=== PATIENT | female | born 1990 | race African-American/Black ===

== ENCOUNTER 2016-11-10 15:48 | Emergency (ER) | payer MEDICAID ==
[~2016-11-10] VITALS: Ht 180.3 cm; Wt 90.5 kg
[~2016-11-10 15:48] MED LIST: PHEN12.5 PO; PREN0.01 PO
[2016-11-10 15:49] VITALS: BP 143/74; PULSE 84; RESP 15; TEMP 98.4; O2SAT 98
[2016-11-10] MEDS ORDERED: TETANUS/DIPHTHERIA TOXOID ADULT 0.5 ML VIAL IM ONE (16:45)
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
== END 2016-11-10 17:21 | disposition home or self-care (01) ==
LOC: NEPK 15:48
DX: S40.812A Abrasion of left upper arm, initial encounter (principal); M54.2 Cervicalgia; Y04.8XXA Assault by other bodily force, initial encounter; Z23 Encounter for immunization
CPT/HCPCS: 70360; 84703; 90471; 90714

== ENCOUNTER 2017-02-27 15:22 | Emergency (ER) | payer MEDICAID ==
[~2017-02-27] VITALS: Ht 180.3 cm; Wt 89.0 kg
[2017-02-27 15:23] VITALS: BP 120/76; PULSE 112; RESP 18; TEMP 98.8; O2SAT 100
--- NOTE | 2017-02-27 15:44 | RADRPT ---
EXAM DATE/TIME: 02/27/2017 15:39 [facility] COMPARISON: No previous studies available for comparison. INDICATIONS : Left ankle pain; rolled ankle this morning. MEDICAL HISTORY : None. SURGICAL HISTORY : None. ENCOUNTER: Initial ACUITY: 1 day PAIN SCORE: 3/10 LOCATION: Left ankle FINDINGS: Three view exam was performed of the left ankle. The bony structures are in normal alignment. No ev idence of fracture, dislocation, or soft tissue swelling. The ankle mortise is intact. No radiopaqu e foreign bodies are seen. Bony mineralization is normal. CONCLUSION: Unremarkable examination of the left ankle. Souleymane Gallego MD on February 27, 2017 at 15:42 Board Certified Radiologist. This report was verified electronically.
[2017-02-27] MEDS ORDERED: IBUP1TAB7 PO (16:19)
--- NOTE | 2017-02-27 16:19 | PD ---
HPI Chief Complaint: Injury Time Seen by Provider: 15:51 Travel History International Travel<30 days: No Contact w/Intl Traveler<30days: No Traveled to known affect area: No History of Present Illness HPI 18-year-old female presents emergency Department with complaint of lateral left ankle pain after twisting it while walking today. Denies paresthesias, loss of sensation, decreased range of motion, decreased strength to the affected extremity. Has been ambulatory on the affected extremity. Has not taken any medication or tried any treatments to alleviate her symptoms. Pain is worse with palpation and ambulation. Rates pain 2/10. Describes it as an aching sensation. No known allergies. No primary care provider. History of hypertension. Has no other medical complaints. No other modifying factors or associated signs and symptoms. PFSH Past Medical History Cardiovascular Problems: Yes (HTN) Diminished Hearing: No Genitourinary: Yes (UTI) ?: Not LMP: 02/17/2017 : 2 Para: 1 Ovarian Cysts: Yes Social History Alcohol Use: No Tobacco Use: No Substance Use: No Allergies-Medications (Allergen,Severity, Reaction): Coded Allergies: No Known Allergies (Unverified , 11/10/16) Reported Meds & Prescriptions Reported Meds & Active Scripts Active Ibuprofen 800 Mg Tab 800 Mg PO Q6HR PRN Review of Systems Except as stated in HPI: all other systems reviewed are Neg Physical Exam Narrative GENERAL: Well-nourished, well-developed black female patient, in no acute distress SKIN: Warm and dry. HEAD: Atraumatic. Normocephalic. EYES: Pupils equal and round. No scleral icterus. No injection or drainage. ENT: Mucosa pink and moist. Airway patent. NECK: Trachea midline. CARDIOVASCULAR: Regular rate. RESPIRATORY: No accessory muscle use. GASTROINTESTINAL: Flat. MUSCULOSKELETAL: Left ankle with point tenderness to the lateral malleolar zone with palpation; mild edema to the lateral aspect; without erythema, ecchymosis; no obvious deformity.. Left Lower extremity is supple and nontense with 2+ pedal pulse and sensory intact. No obvious deformities. No clubbing. No cyanosis. No edema. NEUROLOGICAL: Awake and alert. Oriented 3. No obvious cranial nerve deficits. Motor grossly within normal limits. Normal speech. PSYCHIATRIC: Appropriate mood and affect; insight and judgment normal. Data Data Last Documented VS Vital Signs Date Time Temp Pulse Resp B/P (MAP) Pulse Ox O2 Delivery O2 Flow Rate FiO2 02/27/17 15:23 98.8 112 18 120/76 (91) 100 Room Air Orders Orders Ankle, Complete ([id number]) (02/27/17 ) MDM Medical Decision Making Medical Screen Exam Complete: Yes Emergency Medical Condition: Yes Medical Record Reviewed: Yes Differential Diagnosis Ankle fracture, ankle sprain, ankle injury Narrative Course 26-year-old female with left ankle injury. Left ankle x-ray ordered in triage. I offered the patient ibuprofen and she declined. 1615: Left ankle x-ray concludes: Ankle X-Ray 02/27/17 0000 Signed Impressions: Service Date/Time: February 15:39 - CONCLUSION: Unremarkable examination of the left ankle. Souleymane Gallego MD A copy of the x-ray report was provided to the patient. Fabian bandage, ankle stirrup splint, crutches provided for support. Ibuprofen prescribed for home. Instructed patient to follow up with orthopedics if symptoms persist greater than 7-10 days. Patient declined crutches. Instructed patient to follow up with primary care provider. Patient verbalizes understanding and agreement with treatment plan. Patient is medically cleared and stable for discharge. Discussed reasons to return to the emergency department. Patient agrees with treatment plan. The patients vital signs are stable and the patient is stable for outpatient follow-up and treatment. Patient discharged home, stable and in no acute distress. Diagnosis Primary Impression: Left ankle injury Qualified Codes: S99.912A - Unspecified injury of left ankle, initial encounter Referrals: Primary Care Physician Patient Instructions: Ankle Sprain (ED), Crutch Instructions (ED), General Instructions Additional Instructions: Tylenol or ibuprofen as directed and as needed for pain and inflammation Rest, ice, compress, and elevate extremity to decrease pain and inflammation Ankle Brace for support Crutches for support Avoid aggravating activity; increase activity as tolerated Follow-up with primary care provider Return to the emergency department immediately with worsening of symptoms Med/Other Pt SpecificInfo: Prescription(s) given Scripts Ibuprofen (Ibuprofen) 800 Mg Tab 800 MG PO Q6HR Y for PAIN, #30 TAB 0 Refills Prov: Malinda Kaur 02/27/17 Disposition: 01 DISCHARGE HOME Condition: Stable Malinda Kaur Feb 27, 2017 16:19
== END 2017-02-27 17:01 | disposition home or self-care (01) ==
LOC: NEPK 15:22
DX: S99.912A Unspecified injury of left ankle, initial encounter (principal); X50.1XXA Overexertion from prolonged static or awkward postures, initial encounter; Y93.01 Activity, walking, marching and hiking
CPT/HCPCS: 73610; 99283; L1906

== ENCOUNTER 2017-04-15 17:25 | Emergency (ER) | payer MEDICAID ==
[~2017-04-15 17:25] MED LIST changes: +IBUP1TAB7 PO; -PHEN12.5 PO; -PREN0.01 PO
[2017-04-15 17:41] VITALS: BP 129/75; PULSE 102; RESP 18; TEMP 100.1; O2SAT 100
--- NOTE | 2017-04-15 21:12 | PD ---
HPI Chief Complaint: Oral / Dental Pain or Problem Time Seen by Provider: 21:01 Travel History International Travel<30 days: No Contact w/Intl Traveler<30days: No Traveled to known affect area: No History of Present Illness HPI 27-year-old female presents to the emergency department for evaluation of pain and swelling underneath her right jawline as well as fever. Patient states that started 4 days ago. She reports difficulty opening her mouth. She currently rates the pain 7/10, aching. Patient was unaware she was running a fever until she was noted to have a fever here. Patient states the pain is traveling down her neck. She reports no chronic medical problems and takes no prescribed medications. She denies . She denies any dental pain. Exacerbating factors are opening her mouth and palpation of the area. No alleviating factors. Moderate severity. PFSH Past Medical History Cardiovascular Problems: Yes (HTN) Diminished Hearing: No Genitourinary: Yes (UTI) Immunizations Current: Yes Tetanus Vaccination: < 5 Years Influenza Vaccination: No ?: Unknown : 2 Para: 1 Ovarian Cysts: Yes Social History Alcohol Use: No Tobacco Use: No Substance Use: No Allergies-Medications (Allergen,Severity, Reaction): Coded Allergies: No Known Allergies (Unverified Adverse Reaction, Unknown, 04/15/17) Reported Meds & Prescriptions Reported Meds & Active Scripts Active Ibuprofen 800 Mg Tab 800 Mg PO Q6HR PRN Review of Systems Except as stated in HPI: all other systems reviewed are Neg Physical Exam Narrative GENERAL: Well-nourished, well-developed female patient, temp of 100.1. SKIN: Focused skin assessment warm/dry. HEAD: Normocephalic. Atraumatic. Patient has significant tenderness under right jaw line to submandibular region. ENT: Mucosa pink and moist. No erythema or exudates. No uvular edema. No uvular , palatal, or tonsillar deviation. Airway patent. Nasal turbinates appear normal without nasal blood, purulent drainage or septal hematoma. Bilateral tympanic membranes are clear without erythema or perforation. No dental pain to palpation. Trismus is noted. EYES: No scleral icterus. No injection or drainage. NECK: Supple, trachea midline. No JVD or lymphadenopathy. CARDIOVASCULAR: Regular rate and rhythm without murmurs, gallops, or rubs. RESPIRATORY: Breath sounds equal bilaterally. No accessory muscle use. Lungs sounds are clear to auscultation. GASTROINTESTINAL: Abdomen soft, non-tender, nondistended. MUSCULOSKELETAL: No cyanosis, or edema. BACK: Nontender without obvious deformity. No CVA tenderness. Data Data Last Documented VS Vital Signs Date Time Temp Pulse Resp B/P (MAP) Pulse Ox O2 Delivery O2 Flow Rate FiO2 04/15/17 17:41 100.1 102 18 129/75 (93) 100 Orders Orders Complete Blood Count With Diff (04/15/17 21:07) Comprehensive Metabolic Panel (04/15/17 21:07) Ed Urine Pregnancytest Poc (04/15/17 21:07) Ct Soft Tiss Neck W Iv Cont (04/15/17 ) Iv Access Insert/Monitor (04/15/17 21:07) Sodium Chlor 0.9% 1000 Ml Inj (Ns 1000 M (04/15/17 21:15) Acetaminophen (Tylenol) (04/15/17 21:15) MDM Medical Decision Making Medical Screen Exam Complete: Yes Emergency Medical Condition: Yes Medical Record Reviewed: Yes Differential Diagnosis Abscess versus Jimmy angina versus lymphadenitis Narrative Course 27-year-old female presents to the emergency department for evaluation of trismus, fever, tenderness to the submental region on the right side. Patient is initially seen in fast track. CBC, CMP, urine test are ordered and pending. CT soft tissue of the neck is ordered and pending. Patient will be transferred to medical bed for further evaluation and disposition. Pati Sosa Apr 15, 2017 21:12
[2017-04-15] MEDS ORDERED: ACETAMINOPHEN 325 MG TAB PO ONE (21:15)
[2017-04-15] MEDS ORDERED: SODIUM CHLOR 0.9% 1000 ML INJ 1,000 ML IV ONE (21:15)
[2017-04-15] MEDS ORDERED: IOHEXOL 350 MG/ML 10 ML VIAL (for RAD DIAG) IVCONTRAST ONE (22:04)
[2017-04-15 22:21] LABS: ALBUMIN 3.7 GM/DL (3.4-5.0); AST (GOT) 22 U/L (15-37); BLOOD UREA NITROGEN 9 MG/DL (7-18); CALCIUM 8.7 MG/DL (8.5-10.1); CHLORIDE 105 MEQ/L (98-107); CREATININE 0.76 MG/DL (0.50-1.00); GLOMERULAR FILTRATION RATE 109 ML/MIN (>89); GLUCOSE,RANDOM 87 MG/DL (74-106); SODIUM (NA) 138 MEQ/L (136-145)
[2017-04-15 22:27] LABS: AUTOMATED NEUTROPHIL # 4.8 TH/MM3 (1.8-7.7); BASOPHIL # 0.1 TH/MM3 (0-0.2); BASOPHIL % 0.7 % (0.0-2.0); EOSINOPHIL # 0.4 TH/MM3 (0-0.4); EOSINOPHIL % 4.6 % (0.0-4.0); HEMATOCRIT 35.6 % (35.0-46.0); LYMPH % 34.3 % (9.0-44.0); LYMPHOCYTE # 3.2 TH/MM3 (1.0-4.8); MEAN CELL VOLUME 81.4 FL (80.0-100.0); MEAN CORPUSCULAR HEMOGLOBIN 27.3 PG (27.0-34.0); MEAN CORPUSCULAR HGB CONC 33.6 % (32.0-36.0); MEAN PLATELET VOLUME 8.3 FL (7.0-11.0); MONO % 7.9 % (0.0-8.0); MONOCYTE # 0.7 TH/MM3 (0-0.9); NEUT % 52.5 % (16.0-70.0); PLATELET COUNT 322 TH/MM3 (150-450); RED BLOOD COUNT 4.38 MIL/MM3 (4.00-5.30); RED CELL DISTRIBUTION WIDTH 14.5 % (11.6-17.2); WHITE BLOOD COUNT 9.2 TH/MM3 (4.0-11.0)
[2017-04-15 22:29] LABS: ALKALINE PHOSPHATASE 77 U/L (45-117); ALT (GPT) 16 U/L (10-53); TOTAL BILIRUBIN ADULT 0.2 MG/DL (0.2-1.0); TOTAL PROTEIN 8.2 GM/DL (6.4-8.2)
--- NOTE | 2017-04-15 22:48 | RADRPT ---
EXAM DATE/TIME: 04/15/2017 22:04 [facility] COMPARISON: No previous studies available for comparison. INDICATIONS : Right side mouth pain and fever. IV CONTRAST: 70 cc Omnipaque 350 (iohexol) IV RADIATION DOSE: 15.99 CTDIvol (mGy) MEDICAL HISTORY : None SURGICAL HISTORY : None. ENCOUNTER: Initial ACUITY: 3 days PAIN SCALE: 7/10 LOCATION: Right mouth. TECHNIQUE: Volumetric scanning of the neck was performed. Using automated exposure control and adjustment of th e mA and/or kV according to patient size, radiation dose was kept as low as reasonably achievable to obtain optimal diagnostic quality images. DICOM format image data is available electronically for r eview and comparison. FINDINGS: The submandibular glands have a symmetric appearance. There are level I lymph nodes which measure up to 1.2 cm. There is a mild asymmetry to the superficial lobe of the parotid gland, larger on the ri ght than on the left and slightly more dense on the right, isodense to adjacent muscle. No discrete mass seen within the right parotid. No evidence of adenopathy in the lateral compartment of the neck. Prevertebral soft tissues are norm al in thickness. The thyroid has a homogeneous pattern of enhancement. No supraclavicular adenopath y. Wide windows for bony detail demonstrate the osseous structures be grossly intact. No focal dest ruction or lucency about the mandible. CONCLUSION: Mild enlargement of the right parotid gland and mild increased density suggests possible parotiditis. Jack Galaviz MD on April 15, 2017 at 22:44 Board Certified Radiologist. This report was verified electronically.
[2017-04-15] MEDS ORDERED: CLINDAMYCIN 600 MG/NS PREMIX 50 ML IV ONE (23:00)
[2017-04-15] MEDS ORDERED: AUGM875T3 PO (23:12)
--- NOTE | 2017-04-15 23:12 | PD ---
Data Data Last Documented VS Vital Signs Date Time Temp Pulse Resp B/P (MAP) Pulse Ox O2 Delivery O2 Flow Rate FiO2 04/15/17 17:41 100.1 102 18 129/75 (93) 100 Orders Orders Complete Blood Count With Diff (04/15/17 21:07) Comprehensive Metabolic Panel (04/15/17 21:07) Ed Urine Pregnancytest Poc (04/15/17 21:07) Ct Soft Tiss Neck W Iv Cont (04/15/17 ) Iv Access Insert/Monitor (04/15/17 21:07) Sodium Chlor 0.9% 1000 Ml Inj (Ns 1000 M (04/15/17 21:15) Acetaminophen (Tylenol) (04/15/17 21:15) Clindamycin 600 Mg/Ns Premix (Cleocin 60 (04/15/17 23:00) Amoxicil-Clavulanate (Augmentin) (04/15/17 23:15) Ibuprofen (Motrin) (04/15/17 23:15) Labs Laboratory Tests Test 04/15/17 21:40 White Blood Count 9.2 TH/MM3 Red Blood Count 4.38 MIL/MM3 Hemoglobin 12.0 GM/DL Hematocrit 35.6 % Mean Corpuscular Volume 81.4 FL Mean Corpuscular Hemoglobin 27.3 PG Mean Corpuscular Hemoglobin Concent 33.6 % Red Cell Distribution Width 14.5 % Platelet Count 322 TH/MM3 Mean Platelet Volume 8.3 FL Neutrophils (%) (Auto) 52.5 % Lymphocytes (%) (Auto) 34.3 % Monocytes (%) (Auto) 7.9 % Eosinophils (%) (Auto) 4.6 % Basophils (%) (Auto) 0.7 % Neutrophils # (Auto) 4.8 TH/MM3 Lymphocytes # (Auto) 3.2 TH/MM3 Monocytes # (Auto) 0.7 TH/MM3 Eosinophils # (Auto) 0.4 TH/MM3 Basophils # (Auto) 0.1 TH/MM3 CBC Comment DIFF FINAL Differential Comment Blood Urea Nitrogen 9 MG/DL Creatinine 0.76 MG/DL Random Glucose 87 MG/DL Total Protein 8.2 GM/DL Albumin 3.7 GM/DL Calcium Level 8.7 MG/DL Alkaline Phosphatase 77 U/L Aspartate Amino Transf (AST/SGOT) 22 U/L Alanine Aminotransferase (ALT/SGPT) 16 U/L Total Bilirubin 0.2 MG/DL Sodium Level 138 MEQ/L Potassium Level 4.2 MEQ/L Chloride Level 105 MEQ/L Carbon Dioxide Level 24.0 MEQ/L Anion Gap 9 MEQ/L Estimat Glomerular Filtration Rate 109 ML/MIN MDM Supervised Visit with LYLA: Yes Narrative Course I, Dr. Craey, have reviewed the advance practice practitioner's documentation and am in agreement, met with the patient face to face, made the diagnosis, and the medical decision making was done by me. See her note for further details. Briefly this is a 27-year-old female who is here for evaluation of right facial pain and swelling as well as swelling underneath her right jawline with a fever. Symptoms have been going on for about for 5 days. She is able to swallow and tolerate her secretions. No respiratory difficulty. Mid-level provider was concern for deep space neck infection, so CT was ordered. On exam the patient is comfortable. There is no drooling or stridor. No trismus. Normal phonation. Pharynx is normal. She does have poor dentition. There is right submandibular lymphadenopathy. No sublingual edema. CBC and CMP are unremarkable. CT soft tissue neck shows mild enlargement of the right parotid gland and mild increased density suggest possible parotitis. She denies recent travel outside of the country. Plan is to start her on Augmentin. She was also advised to suck on lemon drops and to use ibuprofen/Tylenol for pain and swelling. She is stable for discharge home with outpatient follow-up. I will give her the name of ENT extension agent with whom to follow-up with this week. She was also advised to follow-up with a dentist this week. She was informed on when to return to the emergency department. She verbalizes understanding and agreement with plan. Diagnosis Primary Impression: Parotitis Referrals: Jeremy Milton MD 3 days ENT Dentist 3 days Primary Care Physician 3 days Additional Instruction: Follow-up with ENT Dr. Milton this week. Follow-up with a dentist this week. Return to the emergency department for worsening symptoms or any other concerns. Scripts Amoxicillin-Clavulanate (Augmentin) 875-125 Mg Tab 1 TAB PO BID for Infection for 10 Days, #20 TAB 0 Refills Prov: Devin Carey MD 04/15/17 Disposition: DISCHARGE HOME Condition: Stable Devin Carey MD Apr 15, 2017 23:12
[2017-04-15] MEDS ORDERED: IBUPROFEN 400 MG TAB PO ONE (23:15)
[2017-04-15] MEDS ORDERED: AMOXICILLIN/CLAVULANATE K 875 MG TAB PO ONE (23:15)
== END 2017-04-15 23:27 | disposition home or self-care (01) ==
LOC: NEPK 17:25 → NEPD 23:27
DX: K11.20 Sialoadenitis, unspecified (principal)
CPT/HCPCS: 70491; 80053; 84703; 85025; 96360; 99284; J7030; Q9967

== ENCOUNTER 2017-10-03 08:19 | Observation (INO) ==
[2017-10-03] MEDS ORDERED: Morphine Sulfate Inj 2 MG/ML Vial IV.PUSH ONE ×2 (09:27→11:22)
[2017-10-03] MEDS ORDERED: Sod Chloride 0.9% Inj 1,000 ML IV.SIG ONE (09:30)
--- NOTE | 2017-10-03 09:33 | ED ---
HPI General Chief complaint: Dental/Oral Stated complaint: Face Swell Time Seen by Provider: 10/03/17 09:22 History of Present Illness HPI narrative: Patient presents to the emergency department with right facial swelling times 1 day. He denies any dental infection, fever, nausea, vomiting, headache, ear pain, shortness of breath, difficulty swallowing. She does report pain in her right jaw in the area of swelling. Denies any trauma to the area. Related Data Home Medications Medication Instructions Recorded Confirmed No Known Home Medications 10/03/17 10/03/17 Allergies Allergy/AdvReac Type Severity Reaction Status Date / Time No Known Allergies Allergy Unverified 10/03/17 08:29 Review of Systems ROS: all other systems reviewed are negative [facility] Medical History Medical History Patient denies medical problems (Acute) Surgical History Surgical History No history of previous surgery (Acute) Social History Social History Substance History: No History of Abuse Second Hand Smoke Exposure: No Smoking Status: Never smoker How Often Do You Have a Drink Containing Alcohol: Never Recent Travel in [facility] within the Last 8 Weeks: No Recent Out of Country Travel within the Last 8 Weeks: No Immunization History Tetanus Immunization: >5 Years Hx Influenza Vaccine This Season: No Exam Narrative Exam Narrative: GENERAL: No acute distress. SKIN: Focused skin assessment warm/dry. HEAD: Atraumatic. Normocephalic. EYES: Pupils equal and round. No scleral icterus. No injection or drainage. ENT: No nasal bleeding or discharge. Mucous membranes pink and moist. No palpable area of fluctuance around teeth. Right jaw swollen, firm, tender to palpation. NECK: Trachea midline. No JVD. CARDIOVASCULAR: Regular rate and rhythm. No murmur appreciated. RESPIRATORY: No accessory muscle use. Clear to auscultation. Breath sounds equal bilaterally. GASTROINTESTINAL: Abdomen soft, non-tender, nondistended. Hepatic and splenic margins not palpable. MUSCULOSKELETAL: No obvious deformities. No clubbing. No cyanosis. No edema. NEUROLOGICAL: Awake and alert. No obvious cranial nerve deficits. Motor grossly within normal limits. Normal speech. PSYCHIATRIC: Appropriate mood and affect; insight and judgment normal. Course Initial Documented Vital Signs Temperature 97.8 F 10/03/17 08:21 Pulse Rate 100 H 10/03/17 08:21 Respiratory Rate 18 10/03/17 08:21 Blood Pressure 116/78 10/03/17 08:21 Pulse Oximetry 100 10/03/17 08:21 Last Documented Vital Signs Temperature 98.5 F 10/03/17 12:00 Pulse Rate 83 10/03/17 12:00 Respiratory Rate 19 10/03/17 12:00 Blood Pressure 105/63 10/03/17 12:00 Pulse Oximetry 100 10/03/17 12:00 Medical Decision Making MDM Narrative Medical decision making narrative: Patient presents to the emergency department with right jaw swelling. Placed on bus driver/monitor, continuous pulse ox, and IV access obtained. Labs, CT scan, 1 L normal saline, and 2 mg IV morphine ordered. Labs: slight decrease Hgb/HCT; CT: CONCLUSION:1. Findings most consistent with right sided parotiditis. No evidence for abscess or bony erosive change. patient given 1gram IV rocephin and 600mg IV clindamycin. Will admit for obs. Medical Screen Exam Complete: Yes Emergency Medical Condition: Yes Differential Diagnosis Differential Diagnosis: Abscess, lymphadenitis, mass/cancer, Lab Data Result diagrams: 10/03/17 09:49 10/03/17 09:49 POC Results POC Urine Results Negative Lab Results 10/03/17 10/03/17 10/03/17 Range/Units 09:49 09:49 09:49 WBC 7.7 (4.0-11.0) th/mm3 RBC 3.91 L (4.00-5.30) mil/mm3 Hgb 9.9 L (11.6-15.3) gm/dL Hct 31.3 L (35.0-46.0) % MCV 80.2 (80.0-100.0) fL MCH 25.3 L (27.0-34.0) pg MCHC 31.6 L (32.0-36.0) % RDW 14.9 (11.6-17.2) % Plt Count 359 (150-450) th/mm3 MPV 8.6 (7.0-11.0) fL Neut % (Auto) 62.1 (16.0-70.0) % Lymph % (Auto) 28.2 (9.0-44.0) % [place] % (Auto) 7.3 (0.0-8.0) % Eos % (Auto) 1.8 (0.0-4.0) % Baso % (Auto) 0.6 (0.0-2.0) % Neut # (Auto) 4.8 (1.8-7.7) th/mm3 Lymph # (Auto) 2.2 (1.0-4.8) th/mm3 [place] # (Auto) 0.6 (0.0-0.9) th/mm3 Eos # (Auto) 0.1 (0.0-0.4) th/mm3 Baso # (Auto) 0.0 (0.0-0.2) th/mm3 WBC Differential . Differential Comment Auto diff final PT 10.8 (9.8-11.6) sec INR 1.1 Ratio APTT 27.3 (24.3-30.1) sec Sodium 141 (136-145) meq/L Potassium 3.6 (3.5-5.1) meq/L Chloride 108 H (98-107) meq/L Carbon Dioxide 23.6 (21.0-32.0) meq/L Anion Gap 9 (5-15) meq/L BUN 10 (7-18) mg/dL Creatinine 0.67 (0.50-1.00) mg/dL Estimated GFR Greater than 89 (>89) mL/min Random Glucose 75 (74-106) mg/dL Calcium 8.4 L (8.5-10.1) mg/dL Total Bilirubin 0.5 (0.2-1.0) mg/dL AST 19 (15-37) U/L ALT 13 (10-53) U/L Alkaline Phosphatase 73 (45-117) U/L Total Protein 7.9 (6.4-8.2) g/dL Albumin 3.6 (3.4-5.0) g/dL Imaging Data Radiologist's impression: Face CT 10/03/17 09:27 CONCLUSION: 1. Findings most consistent with right sided parotiditis. No evidence for abscess or bony erosive change. Discharge Plan Discharge Disposition Patient Disposition: 30 Still Patient Discharge Condition Condition: Stable Discharge Details Diagnosis: Parotiditis Physicians Team ED Provider: Deanna Mart Primary Care Provider: Primary Care Sylvia Giordano Attending Provider: Mike Valdez Other Providers: Isaac Mcgowan Discharge Interventions Interventions: Vital Signs Last Done: 10/03/17 12:00 Status ED Status: Admitted Observation Patient
[2017-10-03 10:45] LABS: Baso % (Auto) 0.6 % (0.0-2.0); Eos # (Auto) 0.1 th/mm3 (0.0-0.4); Eos % (Auto) 1.8 % (0.0-4.0); Hematocrit 31.3 % (35.0-46.0); Hemoglobin 9.9 gm/dL (11.6-15.3); Lymph # (Auto) 2.2 th/mm3 (1.0-4.8); Lymph % (Auto) 28.2 % (9.0-44.0); Mean Corpuscular HGB Conc 31.6 % (32.0-36.0); Mean Corpuscular Hemoglobin 25.3 pg (27.0-34.0); Mean Corpuscular Volume 80.2 fL (80.0-100.0); Mean Platelet Volume 8.6 fL (7.0-11.0); Mono # (Auto) 0.6 th/mm3 (0.0-0.9); Mono % (Auto) 7.3 % (0.0-8.0); Neut # (Auto) 4.8 th/mm3 (1.8-7.7); Neut % (Auto) 62.1 % (16.0-70.0); Platelet Count 359 th/mm3 (150-450); Red Blood Count 3.91 mil/mm3 (4.00-5.30); Red Cell Distribution Width 14.9 % (11.6-17.2); White Blood Count 7.7 th/mm3 (4.0-11.0)
[2017-10-03 10:55] LABS: Activated Partial Thrombo Time 27.3 sec (24.3-30.1); INR 1.1 Ratio; Prothrombin Time 10.8 sec (9.8-11.6)
[2017-10-03 11:00] LABS: Alanine Aminotransferase 13 U/L (10-53); Albumin 3.6 g/dL (3.4-5.0); Anion Gap 9 meq/L (5-15); Aspartate Aminotransferase 19 U/L (15-37); Blood Urea Nitrogen 10 mg/dL (7-18); Calcium 8.4 mg/dL (8.5-10.1); Carbon Dioxide 23.6 meq/L (21.0-32.0); Chloride 108 meq/L (98-107); Glomerular Filtration Rate Greater Than 89 mL/min (>89); Glucose,Random 75 mg/dL (74-106); Potassium 3.6 meq/L (3.5-5.1); Sodium 141 meq/L (136-145)
[2017-10-03 11:03] LABS: Alkaline Phosphatase 73 U/L (45-117); Total Protein 7.9 g/dL (6.4-8.2)
--- NOTE | 2017-10-03 12:13 | CT ---
EXAM DATE: 10/03/2017 11:57 AM EDT AGE/SEX: 27 years / Female INDICATIONS: Right jaw swelling and pain. CLINICAL DATA: This is the patient's initial encounter. Patient reports that signs and symptoms have been present for 1 day and indicates a pain score of 5/10. MEDICAL/SURGICAL HISTORY: None. None. RADIATION DOSE: 29.28 CTDI (mGy) COMPARISON: [facility] – [place], [place] SOFT TISSUE NECK W CONTRAST, 04/15/2017. . TECHNIQUE: Contiguous images in the axial and coronal planes were obtained using helical multirow de tector technique with 72 ml Omnipaque 350 (iohexol) nonionic water-soluble contrast as a single exam dose. Using automated exposure control and adjustment of the mA and/or kV according to patient size , radiation dose was kept as low as reasonably achievable to obtain optimal diagnostic quality images . DICOM format image data is available electronically for review and comparison. FINDINGS: Orbits: The orbital and infraorbital osseous structures are intact. The retroconal structures have a normal configuration. No radiopaque foreign bodies are seen. Nasal Bone: The nasal bone and maxillary spine are intact. Zygomatic Arches: Symmetric without evidence of fracture. Sinuses: The maxillary, ethmoid, and frontal sinuses are intact. No air-fluid levels seen. Nasal Cavity: The nasal septum is intact and midline. The lacrimal ducts are intact. Soft Tissues: There is soft tissue stranding extending from the inferior margin of the right parotid gland surrounding the posterior right masseter muscle. No focal fluid collections or enhancing mass. There are multiple slightly prominent level 1 lymph nodes. Right mandible is normal in appearance wi thout evidence for bony erosive change. Intracranial: No intracranial air seen. Cribriform Plate: Grossly intact. Post Contrast: Otherwise, no abnormal areas of enhancement or mass. CONCLUSION: 1. Findings most consistent with right sided parotiditis. No evidence for abscess or bony erosive ch cecy. Electronically signed by: Lyod Goff MD 10/03/2017 12:12 PM EDT
--- NOTE | 2017-10-03 13:45 | P.HPIM ---
History of Present Illness Primary Care Physician: No Primary Care Physician History of Present Illness: Mrs. Hall is a 27-year-old female. She has no significant past medical history and is healthy at baseline. She noted that starting yesterday that she had onset of right-sided swelling at her jawline. This has progressed over the last 24 hours. No fevers reported. However the pain is increasing. She does note that she has some itching of her throat occurring a little bit of a cough. Nothing like this has happened to her before. CT imaging shows no evidence of abscess. Parotiditis is present. No parotid stone is noted. She went to the [employer] [facility] in [place] and that she cannot remember whether or not she had an MMR vaccine it is likely she has. No other complaints tonight. - Diagnosis (1) Parotiditis Review of Systems Constitutional: No fevers, no chills no night sweats, no fatigue, no weakness Eyes: No eye pain, no blurry vision, no loss of vision ENT: No sore throat, no ear pain, no rhinorrhea, facial pain, facial swelling, slightly sore throat Cardiovascular: No chest pain, no tachycardia, no palpitations, no shortness of breath, no syncope Respiratory: No wheezing, mild cough, no shortness of breath Gastrointestinal: No abdominal pain, no black tarry stools, no bright red blood per rectum, no vomiting, no diarrhea Musculoskeletal: No joint pain, no muscle cramps, no stiffness Integumentary: No rash, no ulcers, no drainage Neurologic: No sensory loss, no loss of motor function, no dizziness Psychiatric: No behavioral changes, no hallucinations, no suicidal ideations [facility] - History History Provided By: Patient - Medical History Medical History: Medical History (Last Updated 08/26/17 @ 22:35 by Yordan Dan) Patient denies medical problems - Surgical History Surgical History: Surgical History (Last Updated 08/26/17 @ 22:53 by Bonny Chen) No history of previous surgery - Tobacco History Second Hand Smoke Exposure: No Smoking Status: Never smoker - Alcohol History How Often Do You Have a Drink Containing Alcohol: Never - Substance Use History Substance History: No History of Abuse - Travel History Recent Travel in the [place] Within the Last 8 Weeks: No Recent Travel Out of the Country Within the Last 8 Weeks: No - Immunization History Tetanus Immunization: >5 Years Hx Influenza Vaccine This Season: No Medications and Allergies Allergies Allergy/AdvReac Type Severity Reaction Status Date / Time No Known Allergies Allergy Unverified 10/03/17 08:29 Home Medications Medication Instructions Recorded Confirmed Type No Known Home Medications 10/03/17 10/03/17 History Exam Vital signs: Vital Signs 10/03/17 08:21 10/03/17 10:23 10/03/17 12:00 Temperature 97.8 F 98.5 F Pulse Rate 100 H 83 Respiratory Rate 18 17 19 Blood Pressure 116/78 105/63 Pulse Oximetry 100 100 Intake & Output 10/02/17 10/03/17 10/03/17 18:59 06:59 18:59 Intake Total 1000 / 1000 Balance 1000 / 1000 Weight 86.183 kg Intake: IV 1000 / 1000 NS Inj 1,000 ML @ Wide Open IV. 1000 / 1000 SIG BOLUS ONE Rx#:[id number] Narrative: GENERAL: NAD, A&Ox3 HEAD: Normocephalic. Parotid gland swelling on right NECK: Supple, trachea midline. No lymphadenopathy. EYES: No scleral icterus. No injection or drainage. CARDIOVASCULAR: Regular rate and rhythm without murmurs, gallops, or rubs. RESPIRATORY: Breath sounds equal bilaterally. No accessory muscle use. GASTROINTESTINAL: Abdomen soft, non-tender, nondistended. MUSCULOSKELETAL: No cyanosis, or edema. SKIN: Warm and dry. NEURO: No focal neurological deficits. Results - Labs CBC & Chem 7: 10/03/17 09:49 10/03/17 09:49 Labs: Short CBC 10/03/17 Range/Units 09:49 WBC 7.7 (4.0-11.0) th/mm3 Hgb 9.9 L (11.6-15.3) gm/dL Hct 31.3 L (35.0-46.0) % Plt Count 359 (150-450) th/mm3 BMP 10/03/17 09:49 Sodium 141 Potassium 3.6 Chloride 108 H Carbon Dioxide 23.6 BUN 10 Creatinine 0.67 Calcium 8.4 L Liver Function 10/03/17 Range/Units 09:49 Total Bilirubin 0.5 (0.2-1.0) mg/dL AST 19 (15-37) U/L ALT 13 (10-53) U/L Alkaline Phosphatase 73 (45-117) U/L Albumin 3.6 (3.4-5.0) g/dL - Imaging Impressions Face CT 10/03/17 09:27 CONCLUSION: 1. Findings most consistent with right sided parotiditis. No evidence for abscess or bony erosive change. Caprini VTE Risk Assessment Caprini VTE Risk Assessment: No/Low Risk (score <= 1) Caprini Risk Assessment Model: Point Value = 1 Point Value = 2 Point Value = 3 Point Value = 5 Age 41-60 Minor surgery BMI > 25 kg/m2 Swollen legs Varicose veins or History of unexplained or recurrent spontaneous Oral contraceptives or hormone replacement Sepsis (< 1 month) Serious lung disease, including pneumonia (< 1 month) Abnormal pulmonary function Acute myocardial infarction Congestive heart failure (< 1 month) History of inflammatory bowel disease Medical patient at bed rest Age 61-74 Arthroscopic surgery Major open surgery (> 45 min) Laparoscopic surgery (> 45 min) Malignancy Confined to bed (> 72 hours) Immobilizing plaster cast Central venous access Age >= 75 History of VTE Family history of VTE Factor V Leiden Prothrombin [id number] Lupus anticoagulant Anticardiolipin antibodies Elevated serum homocysteine Heparin-induced thrombocytopenia Other congenital or acquired thrombophilia Stroke (< 1 month) Elective arthroplasty Hip, pelvis, or leg fracture Acute spinal cord injury (< 1 month) Prophylaxis Regimen: Total Risk Factor Score Risk Level Prophylaxis Regimen 0-1 Low Early ambulation 2 Moderate Order ONE of the following: *Sequential Compression Device (SCD) *Heparin 5000 units SQ BID 3-4 Higher Order ONE of the following medications: *Heparin 5000 units SQ TID *Enoxaparin/Lovenox 40 mg SQ daily (WT < 150 kg, CrCl > 30 mL/min) *Enoxaparin/Lovenox 30 mg SQ daily (WT < 150 kg, CrCl > 10-29 mL/min) *Enoxaparin/Lovenox 30 mg SQ BID (WT < 150 kg, CrCl > 30 mL/min) AND/OR *Sequential Compression Device (SCD) 5 or more Highest Order ONE of the following medications: *Heparin 5000 units SQ TID (Preferred with Epidurals) *Enoxaparin/Lovenox 40 mg SQ daily (WT < 150 kg, CrCl > 30 mL/min) *Enoxaparin/Lovenox 30 mg SQ daily (WT < 150 kg, CrCl > 10-29 mL/min) *Enoxaparin/Lovenox 30 mg SQ BID (WT < 150 kg, CrCl > 30 mL/min) AND *Sequential Compression Device (SCD) Assessment and Plan - Assessment (1) Parotiditis Code(s): K11.20 - Sialoadenitis, unspecified Status: Acute - Plan 27-year-old female admitted secondary to acute parotiditis Acute parotiditis Parotid obstruction vs. viral infection vs. bacterial infection Pain treatments as needed ENT consult Steroids to assist in swelling control Antibiotic coverage with Rocephin and clindamycin Probiotics Follow CBC Follow CMP Monitor for improvement and worsening DVT prophylaxis SCDs
[2017-10-03] MEDS ORDERED: Clindamycin 600 mg/NS Premix 600 MG/50 ML PIGGYBACK IV.SIG ONE (13:57)
[2017-10-03] MEDS ORDERED: MethylPREDNISolone Sod Succinate Inj 40 MG/ML Vial IV.PUSH ONE (14:00)
[2017-10-03] MEDS ORDERED: Clindamycin 900 mg/NS Premix 900 MG/50 ML PIGGYBACK IV.SIG SCH (15:00)
[2017-10-03] MEDS: Lactobacillus Acidophilus/L. Spores Tablet PO SCH (18:03)
[2017-10-03] MEDS: MethylPREDNISolone Sod Succinate Inj 40 MG/ML Vial IV.PUSH SCH (20:09)
[2017-10-03] MEDS: Clindamycin 900 mg/NS Premix 900 MG/50 ML PIGGYBACK IV.SIG SCH (23:26)
[2017-10-04] MEDS: Clindamycin 900 mg/NS Premix 900 MG/50 ML PIGGYBACK IV.SIG SCH (06:00)
[2017-10-04 09:01] LABS: Baso % (Auto) 0.1 % (0.0-2.0); Hematocrit 30.2 % (35.0-46.0); Hemoglobin 9.7 gm/dL (11.6-15.3); Lymph % (Auto) 7.7 % (9.0-44.0); Mean Corpuscular HGB Conc 32.1 % (32.0-36.0); Mean Corpuscular Hemoglobin 25.4 pg (27.0-34.0); Mean Corpuscular Volume 79.2 fL (80.0-100.0); Mean Platelet Volume 8.7 fL (7.0-11.0); Mono # (Auto) 0.8 th/mm3 (0.0-0.9); Mono % (Auto) 5.8 % (0.0-8.0); Neut # (Auto) 11.6 th/mm3 (1.8-7.7); Neut % (Auto) 86.4 % (16.0-70.0); Platelet Count 364 th/mm3 (150-450); Red Blood Count 3.82 mil/mm3 (4.00-5.30); Red Cell Distribution Width 14.5 % (11.6-17.2); White Blood Count 13.4 th/mm3 (4.0-11.0)
[2017-10-04 09:21] LABS: Albumin 3.5 g/dL (3.4-5.0); Anion Gap 10 meq/L (5-15); Aspartate Aminotransferase 17 U/L (15-37); Blood Urea Nitrogen 10 mg/dL (7-18); Carbon Dioxide 23.5 meq/L (21.0-32.0); Chloride 108 meq/L (98-107); Glomerular Filtration Rate Greater Than 89 mL/min (>89); Glucose,Random 94 mg/dL (74-106); Potassium 3.8 meq/L (3.5-5.1); Sodium 141 meq/L (136-145)
[2017-10-04 09:22] LABS: Alanine Aminotransferase 13 U/L (10-53); Calcium 8.8 mg/dL (8.5-10.1)
[2017-10-04 09:24] LABS: Alkaline Phosphatase 77 U/L (45-117); Total Protein 8.3 g/dL (6.4-8.2)
--- NOTE | 2017-10-04 10:22 | P.PN ---
Subjective Interval history: right jaw swelling much improved per patient no pain with mouth opening- no restrictions no difficulty cheweing Physical Exam Vital signs: Vital Signs 10/03/17 10:23 10/03/17 12:00 10/03/17 16:56 Temperature 98.5 F 98.2 F Pulse Rate 83 90 Respiratory Rate 17 19 20 Blood Pressure 105/63 107/64 Pulse Oximetry 100 96 10/03/17 20:00 10/04/17 04:00 10/04/17 07:56 Temperature 99.0 F 97.7 F 98.3 F Pulse Rate 95 H 87 80 Respiratory Rate 19 17 14 Blood Pressure 109/55 L 104/60 114/57 L Pulse Oximetry 99 99 99 Intake & Output 10/03/17 10/04/17 10/04/17 18:59 06:59 18:59 Intake Total 1150 / 1150 100 / 100 Balance 1150 / 1150 100 / 100 Weight 86.183 kg Intake: IV 1150 / 1150 100 / 100 Cleocin 600 mg/NS Premix 600 mg 50 / 50 In 50 ml @ 100 mls/hr IV.SIG ONCE ONE Rx#:[id number] Cleocin 900 mg/NS Premix 900 mg 100 / 100 In 50 ml @ 100 mls/hr IV.SIG Q8H RONAL Rx#:[id number] NS Inj 1,000 ML @ Wide Open IV. 1000 / 1000 SIG BOLUS ONE Rx#:[id number] Rocephin Inj 1,000 MG In NS Inj 100 / 100 100 ML @ 200 mls/hr IV.SIG ONCE ONE Rx#:[id number] Other: # Voids 1 4 Date of Last Bowel Movement 10/03/17 Narrative: afebrile awake and alert no acute distress anciteric right mandible, mild swelling,nontender no tragal tenderenss lungs clear regular rhtyhm' abdomen soft extremiteis no edema Results - Labs CBC & Chem 7: 10/04/17 07:36 10/04/17 07:36 Laboratory Results - last 24 hr 10/03/17 10/03/17 10/03/17 09:49 09:49 09:49 WBC 7.7 RBC 3.91 L Hgb 9.9 L Hct 31.3 L MCV 80.2 MCH 25.3 L MCHC 31.6 L RDW 14.9 Plt Count 359 MPV 8.6 Neut % (Auto) 62.1 Lymph % (Auto) 28.2 [place] % (Auto) 7.3 Eos % (Auto) 1.8 Baso % (Auto) 0.6 Neut # (Auto) 4.8 Lymph # (Auto) 2.2 [place] # (Auto) 0.6 Eos # (Auto) 0.1 Baso # (Auto) 0.0 WBC Differential . Differential Comment Auto diff final PT 10.8 INR 1.1 APTT 27.3 Sodium 141 Potassium 3.6 Chloride 108 H Carbon Dioxide 23.6 Anion Gap 9 BUN 10 Creatinine 0.67 Estimated GFR Greater than 89 Random Glucose 75 Calcium 8.4 L Total Bilirubin 0.5 AST 19 ALT 13 Alkaline Phosphatase 73 Total Protein 7.9 Albumin 3.6 10/04/17 10/04/17 07:36 07:36 WBC 13.4 H D RBC 3.82 L Hgb 9.7 L Hct 30.2 L MCV 79.2 L MCH 25.4 L MCHC 32.1 RDW 14.5 Plt Count 364 MPV 8.7 Neut % (Auto) 86.4 H Lymph % (Auto) 7.7 L [place] % (Auto) 5.8 Eos % (Auto) 0.0 Baso % (Auto) 0.1 Neut # (Auto) 11.6 H Lymph # (Auto) 1.0 [place] # (Auto) 0.8 Eos # (Auto) 0.0 Baso # (Auto) 0.0 WBC Differential . Differential Comment Auto diff final PT INR APTT Sodium 141 Potassium 3.8 Chloride 108 H Carbon Dioxide 23.5 Anion Gap 10 BUN 10 Creatinine 0.64 Estimated GFR Greater than 89 Random Glucose 94 Calcium 8.8 Total Bilirubin 0.3 AST 17 ALT 13 Alkaline Phosphatase 77 Total Protein 8.3 H Albumin 3.5 - Imaging Impressions Face CT 10/03/17 09:27 CONCLUSION: 1. Findings most consistent with right sided parotiditis. No evidence for abscess or bony erosive change. Assessment and Plan - Assessment (1) Parotiditis Code(s): K11.20 - Sialoadenitis, unspecified Status: Acute - Plan 27-year-old female admitted secondary to acute parotiditis Acute parotiditis- clinically improving Parotid obstruction vs. viral infection vs. bacterial infection Pain treatments as needed ENT consulted improved with IV Steroids to assist in swelling control- improved- decrease dose 20 mg q 12- DC tomorrow if improved Antibiotic coverage - clindamycin DC rocpehin Probiotics Follow CBC Follow CMP Monitor for improvement and worsening UP and ambulate possible DC today if cleared with ENT recommendations
[2017-10-04] MEDS: Lactobacillus Acidophilus/L. Spores Tablet PO SCH ×3 (10:35→19:38)
[2017-10-04] MEDS: MethylPREDNISolone Sod Succinate Inj 40 MG/ML Vial IV.PUSH SCH ×3 (13:54→22:31)
[2017-10-04] MEDS: Clindamycin 600 mg/NS Premix 600 MG/50 ML PIGGYBACK IV.SIG SCH ×2 (13:58→22:30)
[2017-10-05 04:19] VITALS: BP 114/59; PULSE 83; RESP 18; TEMP 98; O2SAT 100
[2017-10-05] MEDS: Clindamycin 600 mg/NS Premix 600 MG/50 ML PIGGYBACK IV.SIG SCH (06:08)
--- NOTE | 2017-10-05 07:52 | P.PN ---
Subjective Interval history: patient feels great- no pain with jaw opening Physical Exam Vital signs: Vital Signs 10/04/17 07:56 10/04/17 12:00 10/04/17 16:00 Temperature 98.3 F 98.8 F 99.0 F Pulse Rate 80 98 H 101 H Respiratory Rate 14 16 14 Blood Pressure 114/57 L 111/54 L 118/58 L Pulse Oximetry 99 100 100 10/04/17 20:00 10/05/17 00:00 10/05/17 04:00 Temperature 98.6 F 98 F 98.0 F Pulse Rate 86 84 83 Respiratory Rate 16 14 18 Blood Pressure 112/62 104/50 L 114/59 L Pulse Oximetry 100 99 100 Intake & Output 10/04/17 10/05/17 10/05/17 18:59 06:59 18:59 Intake Total 50 / 50 820 / 820 Balance 50 / 50 820 / 820 Intake: IV 50 / 50 100 / 100 Cleocin 600 mg/NS Premix 600 mg 50 / 50 100 / 100 In 50 ml @ 100 mls/hr IV.SIG Q8H RONAL Rx#:[id number] Oral 720 / 720 Other: # Voids 2 Date of Last Bowel Movement 10/05/17 10/03/17 # Bowel Movements 1 Narrative: afebrile awake and alert no acute distress anciteric right mandible,swelling improved, soft, non tender no tragal tendeness lungs clear regular rhtyhm' abdomen soft extremiteis no edema Results - Labs CBC & Chem 7: 10/04/17 07:36 10/04/17 07:36 Laboratory Results - last 24 hr 10/04/17 10/04/17 10/04/17 07:36 07:36 11:28 WBC 13.4 H D RBC 3.82 L Hgb 9.7 L Hct 30.2 L MCV 79.2 L MCH 25.4 L MCHC 32.1 RDW 14.5 Plt Count 364 MPV 8.7 Neut % (Auto) 86.4 H Lymph % (Auto) 7.7 L [place] % (Auto) 5.8 Eos % (Auto) 0.0 Baso % (Auto) 0.1 Neut # (Auto) 11.6 H Lymph # (Auto) 1.0 [place] # (Auto) 0.8 Eos # (Auto) 0.0 Baso # (Auto) 0.0 WBC Differential . Differential Comment Auto diff final Sodium 141 Potassium 3.8 Chloride 108 H Carbon Dioxide 23.5 Anion Gap 10 BUN 10 Creatinine 0.64 Estimated GFR Greater than 89 Random Glucose 94 Calcium 8.8 Total Bilirubin 0.3 AST 17 ALT 13 Alkaline Phosphatase 77 Total Protein 8.3 H Albumin 3.5 Amylase 48 Assessment and Plan - Assessment (1) Parotiditis Code(s): K11.20 - Sialoadenitis, unspecified Status: Acute - Plan 27-year-old female admitted secondary to acute parotiditis Acute parotiditis- clinically improving Parotid obstruction vs. viral infection vs. bacterial infection no pain improved with IV Steroids to assist in swelling control- improved- decrease dose 20 mg q 12- Change to po prednisone 20 mg bid x 4 days change to po clindamycin 450 mg po q8 x 5 ays d/w Dr. Mcgowan on phne yesterday- continue above - OP ff up DC home todya Encourage po fluids
[2017-10-05] MEDS: Lactobacillus Acidophilus/L. Spores Tablet PO SCH (08:07)
[2017-10-05] MEDS ORDERED: predniSONE 20 MG Tablet PO SCH (09:00)
[2017-10-05] MEDS ORDERED: predniSONE 10 MG Tablet PO SCH (09:00)
[2017-10-08 17:51] LABS: Mumps IgG Antibody >300.00 AU/mL (<=0.90)
== END 2017-10-05 08:48 | disposition home or self-care (01) ==
LOC: NEDA 08:19 → NEPC 08:19 → NEPGCP 16:04
PROVIDERS: ADMIT Internal Medicine; ATTEND Internal Medicine
DX: K11.21 Acute sialoadenitis